=== PATIENT | male | born 1985 | race Hispanic/Latino ===

== ENCOUNTER 2017-11-07 15:51 | Emergency (ER) | payer BC ==
[~2017-11-07] VITALS: Ht 180.3 cm; Wt 102.1 kg
[2017-11-07] MEDS ORDERED: ONDANSETRON HCL 4 MG ORAL DISINTEGRATING TAB PO ONE (16:15)
[2017-11-07] MEDS ORDERED: MORPHINE SULFATE INJ 10 MG/ML IM ONE (16:15)
[2017-11-07] MEDS ORDERED: IBUPROFEN400 MG PO (17:47)
[2017-11-07] MEDS ORDERED: TYLENOL WITH C1 EACH PO (17:47)
== END 2017-11-07 18:14 | disposition home or self-care (01) ==
LOC: FSED 15:51
DX: S62.111A Displaced fracture of triquetrum [cuneiform] bone, right wrist, initial encounter for closed fracture (principal); S52.571A Other intraarticular fracture of lower end of right radius, initial encounter for closed fracture; W17.89XA Other fall from one level to another, initial encounter; Y93.55 Activity, bike riding; Y92.89 Other specified places as the place of occurrence of the external cause
CPT/HCPCS: 29125; 73080; 73090; 73130; 99284; J2270